=== PATIENT | female | born 1940 | race Hispanic/Latino ===

== ENCOUNTER → 2024-08-30 | Outpatient (CLI) | payer OTHER | END | disposition home or self-care (01) | LOC: RAH 12:56 | PROVIDERS: ATTEND Family Medicine Geriatric Medicine | DX: Z12.31 Encounter for screening mammogram for malignant neoplasm of breast (principal); N64.89 Other specified disorders of breast; M81.0 Age-related osteoporosis without current pathological fracture; R92.323 Mammographic fibroglandular density, bilateral breasts | CPT/HCPCS: 77067; 77080 ==

== ENCOUNTER → 2024-10-04 | Outpatient (CLI) | payer OTHER ==
--- NOTE | 2024-10-05 09:17 | HMCIMG ---
PROCEDURE: MAMMO DX UNILATERAL RIGHT, US BREAST COMPLETE UNILATERAL HISTORY: Inconclusive mammogram COMPARISON: 08/30/2024 TECHNIQUE: Right breast digital diagnostic mammogram with CAD was performed. Additional cone compression views of right breast were obtained. Right breast ultrasound study was performed. FINDINGS: There are scattered areas of fibroglandular density. Persistent nodular density is seen at 1:30 o'clock of the right breast in the coned compression views with ultrasound shows complex structure measuring 4 x 2 x 4 mm. Ultrasound guidance core biopsy is recommended for further evaluation. There is right breast cyst at 9:00 measuring 5 x 4 x 4 mm. There is right axillary lymph node measuring 9 x 6 x 8 mm with benign appearance. There is no evidence of a dominant mass, or suspicious microcalcification. There is no evidence of nipple retraction or skin thickening. IMPRESSION: 1. Persistent nodular density is seen at 1:30 o'clock of the right breast in the coned compression views with ultrasound shows complex structure measuring 4 x 2 x 4 mm. Ultrasound guidance core biopsy is recommended for further evaluation. BI-RADS: CATEGORY 4: SUSPICIOUS ABNORMALITY. BIOPSY SHOULD BE CONSIDERED Recommend monthly self breast exam as well as annual clinical examination. A negative x-ray should not delay biopsy if a dominant or clinically suspicious mass is present, since 8-10% of cancers are not identified by mammography. Dense breasts particularly, may obscure an underlying neoplasm. Some of these may be detected clinically and therefore, clinical examination is an essential part of breast evaluation.
== END | disposition home or self-care (01) ==
LOC: RAH 12:44
PROVIDERS: ATTEND Family Medicine Geriatric Medicine
DX: N63.10 Unspecified lump in the right breast, unspecified quadrant (principal); R92.8 Other abnormal and inconclusive findings on diagnostic imaging of breast; R92.30 Dense breasts, unspecified
CPT/HCPCS: 76641; 77065